=== PATIENT | male | born 1990 ===

== ENCOUNTER 2016-08-11 15:35 | Observation (INO) | payer OTHER ==
[2016-08-11 16:12] LABS: Hematocrit 41.3 % (42.0-52.0); Hemoglobin 14.7 gm/dL (13.5-18.0); Mean Cell Volume 79.4 fl (78-100); Mean Corpuscular Hemoglobin 28.3 pg (27-31); Mean Corpuscular Hgb Conc 35.6 g/dl (32-36); Mean Platelet Volume 10.8 fl (6.0-9.5); Neutrophil # 14.6 K/mm3 (1.3-6.0); Neutrophil % 84.9 % (42-75.0); Platelet Count 230 K/mm3 (150-450); Red Cell Distribution Width 12.6 % (11.5-14.0); White Blood Count 17.2 K/mm3 (4.0-10.5)
[2016-08-11] MEDS ORDERED: KETOROLAC TROMETHAMINE 60 MG/2 ML VIAL IM ONE ×2 (16:12)
[2016-08-11 16:13] LABS: Urine Bilirubin Negative (NEGATIVE); Urine Blood Negative /ul (NEGATIVE); Urine Ketone Negative (NEGATIVE); Urine Nitrite Negative (NEGATIVE); Urine Protein Negative (NEGATIVE); Urine Specific Gravity 1.015 SP.GR. (1.005-1.030); Urine Urobilinogen Normal (NORMAL)
--- NOTE | 2016-08-11 16:13 | ERNOTE ---
Abdominal HPI - Narrative Date of Service: 08/11/16 - General Chief Complaint: Abdominal Pain Time Seen by Provider: 08/11/16 15:56 Source: patient, RN notes reviewed Exam Limitations: no limitations - Immun/Allergies/Home Medications Immunizatons: IMMUNIZATION HX Immunizations Up to Date Yes Allergies/Adverse Reactions: Allergies No Known Allergies Allergy (Unverified 08/11/16 15:45) Home Medications: HOME MEDICATIONS Multivitamin [Multivitamins] 1 each PO DAILY 08/11/16 [Last Taken Unknown] - History of Present Illness Narrative: 26 y/o male ambulatory to the ED for right sided abdominal pain that began abruptly at 0300. He denies any associated symptoms. The pain is worse with movement and with oral intake. He took Tylenol earlier today with no change in the pain. He denies any recent injury as well. Date (Duration): 08/11/16 Time (Timing): 03:00 Timing: constant Quality: moderate, aching Activities at Onset: sleep Modifying Factors - (Improves): Present: rest Modifying Factors - (Worsens): Present: eating, movement Associated Symptoms: Absent: headache, back pain, chest pain, neck pain, diaphoresis, fever/chills, heartburn, nausea, vomiting, swelling/mass in abdomen , syncope, weakness Prior Abdominal Problems: Present: none Review of Systems - Review of Systems Constitutional: Present: See HPI EYE: Present: no symptoms reported ENT: Absent: nose congestion, sore throat Respiratory: Absent: shortness of breath, cough Cardiology: Absent: chest pain, palpitations Gastrointestinal/Abdominal: Present: abdominal pain. Absent: nausea, vomiting, diarrhea, constipation Genitourinary: Absent: frequency, dysuria, hematuria Musculoskeletal: Absent: back pain, muscle pain, joint pain Skin: Absent: lesions, lumps, change in color Neurological: Absent: headache, dizziness/light-headedness Endocrine: Present: no symptoms reported Hematologic/Lymphatic: Present: no symptoms reported Psych: Present: no symptoms reported - Patient's Past Medical History Patient History - Medical: No pertinent hx Patient History - Cardiac/Respiratory: No pertinent hx Patient History - Cancer: No Hx of Cancer Patient History - Surgical Procedures: ENT - June 2016 - Social History Living Situations: spouse Smoking Status: Never smoker Have you smoked in the past 12 months: No Do you dip or chew tobacco: Yes Alcohol Use: none Drug Use: none - Immunizations Immunizations Up to Date: Yes Physical Exam - Physical Exam General Appearance: Present: wd/wn, alert, no apparent distress, obese Neck: Present: normal inspection, nontender, supple, full range of motion Respiratory: Present: no respiratory distress, normal breath sounds, no accessory muscle use, lungs clear Cardiovascular/Chest: Present: regular rate, rhythm, no murmur Gastrointestinal/Abdominal: Present: normal bowel sounds, nondistended, soft, no organomegaly, tenderness - Mild in RLQ, moderate right mid abdomen. Absent: guarding, rebound, mass Back Exam: Present: normal inspection, no CVA tenderness Extremity Exam: Present: normal inspection, no edema Neurological Exam: Present: alert, oriented, normal mood/affect, no motor/ sensory deficits Skin Exam: Present: normal color, warm/dry ED Progress - Results and Orders Patient's Lab Results:: I have reviewed the patient's lab results. - Vital Signs Patient's Vital Signs:: I have reviewed the patient's vital signs. Vital Signs: Vital Signs 08/11/16 08/11/16 15:42 16:01 Temperature 36.6 C 36.8 C Pulse Rate 103 H 90 Respiratory 14 14 Rate Blood Pressure 150/81 140/77 O2 Sat by Pulse 97 95 Oximetry - X-Ray X-Ray #1 X-Ray: abdomen Interpretation: Reviewed by me X-ray Comments: Technique: Supine and upright views of the abdomen obtained. A total of 4 images utilized. Comparison: None. Findings: Mild stool in the colon is within the realm of normal variability. There is no bowel obstruction or free air. 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 IMPRESSION: NO ACUTE ABDOMINAL PATHOLOGY IDENTIFIED. Electronically signed by Randy Justice M.D.. - CT/Ultrasound CT/Ultrasound Narrative: CT abdomen/pelvis: IMPRESSION: 1. CT findings suspicious for acute appendicitis. 2. No evidence for complication such as perforation or intra- abdominal/pelvic abscess. Electronically signed by Samson Delarosa M.D.. - Progress/Reassessment Chief Complaint: Abdominal Pain Progress:: Unchanged Progress Note-Subjective: 08/11/16 19:05 Dr. Reynoso in OR currently - OR nursing staff notified of acute appendicitis on CT. CT results discussed with patient. Reports that he is only having pain with movement. 08/11/16 20:44 Dr. Reynoso in to see patient. 08/11/16 20:46 08/11/16 22:19 Surgery nurse here to take patient to the OR. IV antibiotics infusing. Patient reports no change in pain, he states that his stomach is growling and he is hungry. Departure - Departure Clinical Impression: Appendicitis, acute Qualifiers: Acute appendicitis type: with localized peritonitis Qualified Code(s): K35.3 - Acute appendicitis with localized peritonitis Disposition: [facility] Condition: Stable
[2016-08-11 16:20] LABS: Urine Appearance Clear; Urine Bacteria TRACE; Urine Color Yellow; Urine RBC None Seen /hpf (0-5); Urine WBC None Seen /hpf (0-5)
[2016-08-11 16:35] LABS: Albumin * 4.1 gm/dl (3.4-5.0); Anion Gap 12.1 mmol/L (6.8-13.8); BUN/Creatinine Ratio 10.8 (9.0-21.6); Bilirubin, Total 0.5 mg/dL (0.0-1.1); Calcium * 9.4 mg/dL (7.9-10.9); Potassium 4.1 mmol/L (3.4-4.6); Total Protein 8.3 gm/dL (6.2-8.2)
[2016-08-11] MEDS ORDERED: DIATRIZOATE MEGLU/DIATRIZO SOD 30 ML BTL ONE (16:48)
[2016-08-11] MEDS ORDERED: DIATRIZOATE MEGLU/DIATRIZO SOD 30 ML BTL PO ONE (16:50)
[2016-08-11] MEDS ORDERED: LEVOFLOXACIN/D5W 750 MG/150 ML BAG IV ONE (20:48)
[2016-08-11] MEDS ORDERED: metroNIDAZOLE/SODIUM CHLORIDE 500 MG/100 ML BAG IV ONE (20:48)
--- NOTE | 2016-08-11 21:08 | HP ---
Chief Complaint - Chief Complaint Date of Service: 08/11/16 Time of Service: 21:02 Chief Complaint: Right sided abdominal pain History of Present Illness: Had onset of abdominal pain about 0300 today. Presented to ER. w/u c/w acute appendicitis. CT shows acuted appendicitis without rupture or abscess WBC is 17K - Patient's Past Medical History Patient History - Medical: No pertinent hx Patient History - Cardiac/Respiratory: No pertinent hx Patient History - Cancer: No Hx of Cancer Patient History - Surgical Procedures: ENT - June 2016 - Social History Living Situations: spouse Smoking Status: Never smoker Have you smoked in the past 12 months: No Do you dip or chew tobacco: Yes Alcohol Use: none Drug Use: none - Immunizations Immunizations Up to Date: Yes Review Of Systems (GEN) - Review of Systems Misc: All systems neg except as marked Immunizations: IMMUNIZATION HX Immunizations Up to Date Yes Allergies/Adverse Reactions: Allergies Allergy/AdvReac Type Severity Reaction Status Date / Time No Known Allergies Allergy Unverified 08/11/16 15:45 Home Medications: HOME MEDICATIONS Multivitamin [Multivitamins] 1 each PO DAILY 08/11/16 [Last Taken Unknown] Exam - Exam Vital Signs: Vital Signs - Last Taken Temp 36.6 C 08/11/16 19:47 Pulse 78 08/11/16 19:47 Resp 14 08/11/16 19:47 BP 133/71 08/11/16 19:47 Pulse Ox 95 08/11/16 19:47 Constitutional: Present: Alert, Oriented x3, Cooperative, No distress ENT Exam: Present: normal ENT inspection Eye Exam: bilateral eye: normal inspection Neck: Present: normal inspection Respiratory: Present: normal breath sounds, no respiratory distress Cardiovascular/Chest: Present: regular rate, rhythm, no murmur Abdomen: Present: Normal bowel sounds, obese, tender - right flank /Rectal: Present: Exam deferred Extremity: Present: normal inspection Skin Exam: Present: warm/dry Neurologic: Present: no motor/sensory deficits Diagnostic Studies: Abnormal Lab Results 08/11/16 08/11/16 Range/Units 16:05 16:05 WBC 17.2 H (4.0-10.5) K/mm3 Hct 41.3 L (42.0-52.0) % MPV 10.8 H (6.0-9.5) fl Immature Gran # (Auto) 0.06 H (0.000-0.0310) K/mm3 Neutrophils % 84.9 H (42-75.0) % Lymphocytes % 8.9 L (20-51) % Neutrophils # 14.6 H (1.3-6.0) K/mm3 Random Glucose 146 H (70-110) mg/dL ALT 76 H (19-67) U/L Total Protein 8.3 H (6.2-8.2) gm/dL Laboratory Results WBC 17.2 K/mm3 (4.0-10.5) H 08/11/16 16:05 RBC 5.20 M/mm3 (4.7-6.0) 08/11/16 16:05 Hgb 14.7 gm/dL (13.5-18.0) 08/11/16 16:05 Hct 41.3 % (42.0-52.0) L 08/11/16 16:05 MCV 79.4 fl (78-100) 08/11/16 16:05 MCH 28.3 pg (27-31) 08/11/16 16:05 MCHC 35.6 g/dl (32-36) 08/11/16 16:05 RDW 12.6 % (11.5-14.0) 08/11/16 16:05 Plt Count 230 K/mm3 (150-450) 08/11/16 16:05 MPV 10.8 fl (6.0-9.5) H 08/11/16 16:05 Immature Gran % (Auto) 0.30 % (0.001-0.429) 08/11/16 16:05 Immature Gran # (Auto) 0.06 K/mm3 (0.000-0.0310) H 08/11/16 16:05 Neutrophils % 84.9 % (42-75.0) H 08/11/16 16:05 Lymphocytes % 8.9 % (20-51) L 08/11/16 16:05 Monocytes % 5.0 % (0.0-9) 08/11/16 16:05 Eosinophils % 0.6 % (0.0-3.0) 08/11/16 16:05 Basophils % 0.3 % (0.0-1.0) 08/11/16 16:05 Nucleated RBC % 0.0 k/mm3 (0-1) 08/11/16 16:05 Neutrophils # 14.6 K/mm3 (1.3-6.0) H 08/11/16 16:05 Lymphocytes # 1.5 k/mm3 (1.5-3.5) 08/11/16 16:05 Monocytes # 0.9 k/mm3 (0.0-1.0) 08/11/16 16:05 Eosinophils # 0.1 k/mm3 (0.0-0.7) 08/11/16 16:05 Absolute Basophils 0.1 k/mm3 (0.0-0.1) 08/11/16 16:05 Sodium 139 mmol/L (132-142) 08/11/16 16:05 Plasma Sodium 140 mmol/L (130-142) 08/11/16 16:05 Potassium 4.1 mmol/L (3.4-4.6) 08/11/16 16:05 Chloride 102 mmol/L (97-106) 08/11/16 16:05 Carbon Dioxide 29.0 mmol/L (24-32.6) 08/11/16 16:05 Anion Gap 12.1 mmol/L (6.8-13.8) 08/11/16 16:05 BUN 13 mg/dL (6-23) 08/11/16 16:05 Creatinine 1.20 mg/dL (0.4-1.4) 08/11/16 16:05 Est GFR (Non-Af Amer) 77 mL/min (60-130) 08/11/16 16:05 BUN/Creatinine Ratio 10.8 (9.0-21.6) 08/11/16 16:05 Random Glucose 146 mg/dL (70-110) H 08/11/16 16:05 Calcium 9.4 mg/dL (7.9-10.9) 08/11/16 16:05 Calcium Adj for Albumin 9.0 mg/dL (8.4-10.2) 08/11/16 16:05 Total Bilirubin 0.5 mg/dL (0.0-1.1) 08/11/16 16:05 AST 29 U/L (0-48) 08/11/16 16:05 ALT 76 U/L (19-67) H 08/11/16 16:05 Alkaline Phosphatase 66 U/L (50-170) 08/11/16 16:05 Total Protein 8.3 gm/dL (6.2-8.2) H 08/11/16 16:05 Albumin 4.1 gm/dl (3.4-5.0) 08/11/16 16:05 Amylase 37 U/L (25-115) 08/11/16 16:05 Lipase 160 U/L (73-393) 08/11/16 16:05 Urine Color Yellow 08/11/16 16:05 Urine Appearance Clear 08/11/16 16:05 Urine pH 6.0 pH (5.0-7.0) 08/11/16 16:05 Ur Specific [place] 1.015 SP.GR. (1.005-1.030) 08/11/16 16:05 Urine Protein Negative mg/dL (NEGATIVE) 08/11/16 16:05 Urine Glucose (UA) Negative mg/dL (NEGATIVE) 08/11/16 16:05 Urine Ketones Negative mg/dL (NEGATIVE) 08/11/16 16:05 Urine Blood Negative /ul (NEGATIVE) 08/11/16 16:05 Urine Nitrate Negative (NEGATIVE) 08/11/16 16:05 Urine Bilirubin Negative mg/dl (NEGATIVE) 08/11/16 16:05 Urine Urobilinogen Normal EU/dl (NORMAL) 08/11/16 16:05 Ur Leukocyte Esterase Negative /ul (NEGATIVE) 08/11/16 16:05 Urine RBC None seen /hpf (0-5) 08/11/16 16:05 Urine WBC None seen /hpf (0-5) 08/11/16 16:05 Ur Epithelial Cells Trace /hpf (0-5) 08/11/16 16:05 Urine Bacteria Trace (NONE) 08/11/16 16:05 Urine Culture Comments No culture indicated 08/11/16 16:05 Assessment/Plan - Narrative Narrative: A: Acute appendicitis, non-ruptured P: Recommend laparoscopic appendectomy. The options, risks, and benefits of the procedure were reviewed fully. He seems to understand, asks appropriate questions, and desires to proceed. - Assessment/Plan (1) Appendicitis, acute Problem: Acute Qualifiers: Acute appendicitis type: with localized peritonitis Qualified Code(s): K35.3 - Acute appendicitis with localized peritonitis
[2016-08-11] MEDS ORDERED: RINGERS SOLUTION,LACTATED 1,000 ML IV ONE ×2 (22:30→23:25)
[2016-08-11] MEDS ORDERED: BUPIVACAINE HCL/EPINEPHRINE 50 ML VIAL IJ ONE ×2 (22:50)
[2016-08-11] MEDS ORDERED: RINGERS SOLUTION,LACTATED 1,000 ML IV PRN (23:46)
[2016-08-11] MEDS ORDERED: MORPHINE SULFATE 2 MG/ML DISP.SYRIN IV PRN (23:46)
--- NOTE | 2016-08-11 23:46 | OR ---
Operative Report - Dictated Report Narrative: Date: 08/11/2016 PREOP: Acute appendicitis, nonperforated POSTOP: Same PROC: Laparoscopic appendectomy SURG: Severino Reynoso MD EBL: <5cc SPEC: appendix ANES: GETA DRAINS: none COMPS: none apparent DESCR: Pt placed supine and GETA. Keenan catheter inserted and abdomen prepped and draped in a sterile fashion. All port sites anesthetized with marcaine prior to incision. 5mm blunt infraumbilical port inserted under direct vision with scope within the lumen of the trocar. Abdomen insufflated to 15mmHg with CO2. Suprapubic 12mm and LLQ 5mm ports inserted under direct vision. Terminal ileum and ileal fold of treves adherent to appendix and taken down bluntly. Appendix attached to iliac fossa with a fold of peritoneum which was divided with thunderbeat. Mesoappendix taken down in continuity with thunderbeat. Appendix transected at base with endoGIA, placed in endopouch and removed through suprapubic port. Hemostasis appeared adequate. No purulence or reactive fluid encountered. Appendix was not perforated. Pneumoperitoneum evacuated and ports removed. Incisions closed with subcuticular 4-0 vicryl and sealed with dermabond. Pt tolerated procedure well without apparent complications and was discharged from OR in stable condition.
[2016-08-12] MEDS ORDERED: HYDROcodone/ACETAMINOPHEN 1 EACH TABLET PO ONE (01:45)
[2016-08-12 07:30] VITALS: BP 136/37
--- NOTE | 2016-08-12 10:08 | DS ---
(1) Appendicitis, acute Problem: Resolved Qualifiers: Acute appendicitis type: with localized peritonitis Qualified Code(s): K35.3 - Acute appendicitis with localized peritonitis Description of Stay: Pt presented to ER with acute appendicitis. Was taken to OR for lap appy. Tolerated procedure well. No purulence or rupture was noted therefore no need for ongoing antibiotics. He tolerated procedure well without apparent complications and did well overnight and is ambulating in the halls in his street clothes. He is to follow up 1 wk for outpt visit. Avoid lifting for 1 week. Diet as tolerated. May shower. Procedures Performed: see notes below List Procedures: Laparoscopic appendectomy Discharge Disposition: Home self care Disposition: Home self-care Condition: Stable Discharge Activity: No Lifting - 1 week Discharge Diet: General/regular food Referrals: Severino Reynoso MD [Associate] - Complete Home Medications List: Complete Home Medication List: Multivitamin [Multivitamins] 1 each PO DAILY 08/11/16
[2016-08-13] MEDS ORDERED: ONDANSETRON HCL/PF 2 MG/ML VIAL IV ONE (00:30)
[2016-08-13] MEDS ORDERED: HYDROcodone/ACETAMINOPHEN 1 EACH TABLET PO ONE (00:30)
== END 2016-08-12 10:25 | disposition home or self-care (01) ==
LOC: ER 15:35 → AMB 22:18 → MS 23:58
PROVIDERS: ADMIT Specialist; ATTEND Specialist
PROC: 0DTJ4ZZ Resection of Appendix, Percutaneous Endoscopic Approach (ICD-10-PCS; principal; 2016-08-11 22:17)
DX: K35.3 Acute appendicitis with localized peritonitis (principal)
CPT/HCPCS: 36415; 44970; 74020; 74177; 80053; 81001; 82150; 83690; 85025; 88304; 96365; 96367; 96372; 99284; G0378